=== PATIENT | female | born 1945 | race Caucasian/White ===

== ENCOUNTER 2021-01-07 11:33 | Emergency (ER) | payer MEDICARE, OTHER, MEDICAID ==
[~2021-01-07 11:33] MED LIST: BREO ELLIPTA 11 EACH INH; CEFPODOXIM50 MG/5 ML PO; CEFPODOXIME PR200 MG PO; DILTIAZEM 24HR240 M1 PO; GLUCOPHAGE500 MG PO; IPRAT-ALBUT 0.5-3 ML INH; LISINOPRIL10 MG PO; MEDROL4 MG PO; TAMIFLU 75 MG C75 MG PO; VENTOLIN HFA 66.7 GM INH; ZITHROMAX250 MG PO; ZOCOR80 MG PO
[2021-01-07 13:29] LABS: HEMOGLOBIN 10.4 gm/dl (12.3-15.3); RED BLOOD COUNT 3.92 M/UL (4.00-5.10); WHITE BLOOD COUNT 11.8 K/UL (4.5-11.0)
[2021-01-07 13:52] LABS: BUN/CREATININE RATIO 23 (0-10)
[2021-01-07] MEDS ORDERED: PREDNISONE 20 M20 MG GT (15:31)
[2021-01-07] MEDS ORDERED: OMNICEF 300 MG300 MG PO (15:35)
== END 2021-01-07 16:45 | disposition home or self-care (01) ==
LOC: ER1 11:33
DX: J44.1 Chronic obstructive pulmonary disease with (acute) exacerbation (principal); Z20.822 Contact with and (suspected) exposure to COVID-19
CPT/HCPCS: 71045; 80053; 83615; 83880; 85025; 86140; 93005; 94640; 94664; 94760; 96374; 96375; 99285; J0696; J2930; U0002

== ENCOUNTER 2021-01-10 18:13 | Emergency (ER) | payer MEDICARE, OTHER ==
[~2021-01-10 18:13] MED LIST changes: +OMNICEF 300 MG300 MG PO; +PREDNISONE 20 M20 MG GT
[2021-01-10 19:31] LABS: HEMOGLOBIN 10.6 gm/dl (12.3-15.3); RED BLOOD COUNT 3.87 M/UL (4.00-5.10); WHITE BLOOD COUNT 13.6 K/UL (4.5-11.0)
[2021-01-10 20:16] LABS: BUN/CREATININE RATIO 48 (0-10)
== END 2021-01-10 23:40 | disposition home or self-care (01) ==
LOC: ER1 18:13
PROVIDERS: Physician Assistant Medical
DX: R04.0 Epistaxis (principal); E11.9 Type 2 diabetes mellitus without complications; I10 Essential (primary) hypertension; J44.9 Chronic obstructive pulmonary disease, unspecified
CPT/HCPCS: 80053; 85025; 85610; 85730; 99283